=== PATIENT | male | born 1995 | race Caucasian/White ===

== ENCOUNTER 2020-07-07 11:55 | Emergency (ER) | payer SELFPAY ==
[~2020-07-07] VITALS: Ht 170.2 cm; Wt 72.6 kg
[2020-07-07 12:00] VITALS: BP 125/80
--- NOTE | 2020-07-07 12:06 | NUR ---
[facility] here to obtain report
--- NOTE | 2020-07-07 12:10 | NUR ---
MYRNA ([facility]-[phone]) AT BEDSIDE. OFFICER DELBERT [id number] AND OFFICER CARMEN [id number].
[2020-07-07] MEDS ORDERED: VENL150C2 PO (13:12)
[2020-07-07] MEDS ORDERED: ALPR2TAB7 PO (13:12)
[2020-07-07] MEDS ORDERED: VENL37.55 PO (13:12)
--- NOTE | 2020-07-07 13:15 | NUR ---
Patient discharged to home in stable condition. Written and verbal after care instructions given. Patient verbalizes understanding of instruction.
== END 2020-07-07 13:17 | disposition home or self-care (01) ==
LOC: ER 11:57 → EDBD 11:57 → ER 13:17
DX: S09.8XXA Other specified injuries of head, initial encounter (principal); J45.909 Unspecified asthma, uncomplicated; Z79.899 Other long term (current) drug therapy; Y04.8XXA Assault by other bodily force, initial encounter; Y93.89 Activity, other specified; Y92.89 Other specified places as the place of occurrence of the external cause; Y99.8 Other external cause status
CPT/HCPCS: 70450-TC

== ENCOUNTER 2021-10-08 02:33 | Emergency (ER) | payer BC, OTHER ==
[~2021-10-08] VITALS: Ht 177.8 cm; Wt 63.5 kg
[~2021-10-08 02:33] MED LIST: ALPR2TAB7 PO; VENL150C2 PO; VENL37.55 PO
--- NOTE | 2021-10-08 02:42 | NUR ---
BIBRA 89 C/O CP. PT USES [employer]. LAST TIME HE USED 36 HRS [employer]. PT A/OX4. TOLERATING R/A WELL WITH NO SOB; RESP EVEN AND NON LABORED. CONNECTED PT TO POX AND MONITOR. SAFETY MEASURES IN PLACE.
--- NOTE | 2021-10-08 02:51 | NUR ---
RN AT PT'S BEDSIDE FOR EKG
[2021-10-08 04:12] LABS: BASOPHILS # (AUTO) 0.1 K/uL (0.0-0.2); BASOPHILS % (AUTO) 0.7 % (0.0-2.0); EOSINOPHILS % (AUTO) 0.8 % (0.0-6.0); HEMATOCRIT 42 % (39-51); HEMOGLOBIN 14.4 g/dL (13.5-17.5); LYMPHOCYTES % (AUTO) 21.8 % (20.0-44.0); MEAN CORPUSCULAR HGB CONC 34 g/dl (31.0-36.0); MEAN CORPUSCULAR VOLUME 87 fL (80-96); MONOCYTES # (AUTO) 0.7 K/uL (0.1-1.30); MONOCYTES % (AUTO) 8.2 % (2.0-12.0); NEUTROPHILS # (AUTO) 6.2 K/uL (1.8-8.9); NEUTROPHILS % (AUTO) 68.5 % (43.0-81.0); PLATELET COUNT (AUTO) 312 K/uL (150-450); RED BLOOD CELL COUNT(AUTO) 4.85 MIL/uL (4.5-6.0)
[2021-10-08 05:10] LABS: CHLORIDE 106 mmol/L (98-107); POTASSIUM 3.5 mmol/L (3.5-5.1); SODIUM SERUM 141 mmol/L (136-145)
[2021-10-08 05:19] LABS: CARBON DIOXIDE 26 mmol/L (21-32)
[2021-10-08 05:25] LABS: CALCIUM, SERUM 9.1 mg/dL (8.5-10.1); CREATININE 0.8 mg/dL (0.6-1.3); GLUCOSE 91 mg/dL (74-106); UREA NITROGEN, BLOOD 5 mg/dL (7-18)
--- NOTE | 2021-10-08 05:56 | NUR ---
[employer] at pt's bedside.
--- NOTE | 2021-10-08 05:57 | NUR ---
Pt Refused blood draw; Dr. Leon MALDONADO aware
[2021-10-08 06:17] VITALS: BP 119/81
--- NOTE | 2021-10-08 06:18 | NUR ---
Patient discharged to home in stable condition. Written and verbal after care instructions given. Patient verbalizes understanding of instruction. PT ambulatory with a steady gait
== END 2021-10-08 06:18 | disposition home or self-care (01) ==
LOC: ER 02:35
DX: R00.2 Palpitations (principal); R07.89 Other chest pain; F19.10 Other psychoactive substance abuse, uncomplicated; J45.909 Unspecified asthma, uncomplicated; Z79.899 Other long term (current) drug therapy
CPT/HCPCS: 36415; 71045-TC; 80048-TC; 84484-TC; 85025-TC

== ENCOUNTER 2021-10-15 17:01 | Emergency (ER) | payer BC, OTHER ==
[~2021-10-15] VITALS: Ht 177.8 cm; Wt 72.6 kg
--- NOTE | 2021-10-15 17:13 | NUR ---
LINDSEY PRIETO [address],ANXIETY/HYPERVENTILATING SAYING THAT VALIUM/SUBO MICHAEL AND KEPPRA HE WAS GETTING AT THE FACILITY WAS NOT WORKING.
[2021-10-15 18:44] VITALS: BP 120/75
--- NOTE | 2021-10-15 18:44 | NUR ---
Patient discharged to home in stable condition. Written and verbal after care instructions given. Patient verbalizes understanding of instruction.
== END 2021-10-15 18:45 | disposition home or self-care (01) ==
LOC: ER 17:20
DX: F13.239 Sedative, hypnotic or anxiolytic dependence with withdrawal, unspecified (principal); F15.23 Other stimulant dependence with withdrawal; F11.23 Opioid dependence with withdrawal; F41.9 Anxiety disorder, unspecified; F17.200 Nicotine dependence, unspecified, uncomplicated; J45.909 Unspecified asthma, uncomplicated; Z79.899 Other long term (current) drug therapy